=== PATIENT | male | born 1970 | race Caucasian/White ===

== ENCOUNTER 2018-03-01 11:30 | Emergency (ER) | payer SELFPAY ==
--- NOTE | 2018-03-01 13:13 | RAD ---
THREE VIEWS LEFT HAND: COMPARISON: None. HISTORY: Nail injury to the hand with pain in the left hand. FINDINGS: Three views left hand show a nail in the volar aspect of the index finger. This does not appear to c ourse through the bone on the lateral radiograph. There is no evidence of fracture or dislocation. IMPRESSION: The nail appears to be in the volar soft tissues without evidence of penetration of the bone. POS: [facility]
[2018-03-01] MEDS ORDERED: Lidocaine 1% PF 5 ML VIAL ONE (13:22)
[2018-03-01] MEDS ORDERED: Bacitracin Zinc 1 Packet ONE (13:22)
== END 2018-03-01 13:54 | disposition home or self-care (01) ==
LOC: ERS 11:30
DX: S61.442A Puncture wound with foreign body of left hand, initial encounter (principal); F17.210 Nicotine dependence, cigarettes, uncomplicated; W45.0XXA Nail entering through skin, initial encounter
CPT/HCPCS: J2001